=== PATIENT | female | born 1930 | race African-American/Black ===

== ENCOUNTER 2019-08-13 01:43 | Emergency (ER) | payer SELFPAY ==
[~2019-08-13] VITALS: Ht 157.5 cm; Wt 48.0 kg
[2019-08-13] MEDS ORDERED: SODIUM CHLORIDE 0.9% 1000ML BAG (SEPSIS BOLUS) IV ONE (02:15)
[2019-08-13 02:58] LABS: CHLORIDE 108 mEq/L (98-107)
[2019-08-13 03:02] LABS: EOSINOPHILS % 0.7 % (0.0-5.0); HEMATOCRIT. 36.8 % (36.0-48.0); HEMOGLOBIN. 12.5 g/dL (12.0-16.0); LYMPHOCYTES % 34.4 % (20.0-50.0); MEAN CORPUSCULAR HEMOGLOBIN 32.9 pg (28.0-32.0); MEAN CORPUSCULAR VOLUME 96.6 fL (81.0-99.0); MEAN PLATELET VOLUME 7.5 fl (7.4-10.4); MONOCYTES % 5.3 % (2.0-8.0); NEUTROPHILS % 58.6 % (40.0-76.0); PLATELET 243 x1000/uL (130-400); RED BLOOD CELL COUNT 3.81 mill/uL (4.2-5.4)
[2019-08-13 03:03] LABS: ETHANOL BLOOD < 10 mg/dL
[2019-08-13 03:08] VITALS: BP 101/56
== END 2019-08-13 03:10 | disposition home or self-care (01) ==
LOC: ER 01:43 → CANBEDREQ 06:24
DX: R53.1 Weakness (principal); G89.29 Other chronic pain; M54.5 Low back pain
CPT/HCPCS: 36415; 80053; 80320; 83605; 84145; 84484; 85025; 87040; 93005; 99284; J7030; G0480

== ENCOUNTER 2019-12-23 01:53 | Inpatient (IN) | payer MEDICARE, MEDICAID ==
[~2019-12-23] VITALS: Ht 154.4 cm; Wt 37.6 kg
[~2019-12-23 01:53] MED LIST: BRIM10DR2 EACHEYE
[2019-12-23] MEDS ORDERED: SODIUM CHLORIDE 0.9% 500 ML IV ONE (02:15)
[2019-12-23 03:13] LABS: BASOPHILS % 1.5 % (0.0-2.0); EOSINOPHILS % 0.4 % (0.0-5.0); HEMOGLOBIN. 11.6 g/dL (12.0-16.0); LYMPHOCYTES % 32.5 % (20.0-50.0); MEAN CORPUSCULAR HEMOGLOBIN 33.1 pg (28.0-32.0); MEAN CORPUSCULAR VOLUME 99.9 fL (81.0-99.0); MEAN PLATELET VOLUME 7.4 fl (7.4-10.4); MONOCYTES % 8.4 % (2.0-8.0); NEUTROPHILS % 57.2 % (40.0-76.0); PLATELET 246 x1000/uL (130-400); RED CELL DISTRIBUTION WIDTH 15.3 % (11.6-14.6)
[2019-12-23] MEDS ORDERED: DEXTROSE 50% WATER 50ML SYRINGE IV ONE (03:15)
[2019-12-23] MEDS ORDERED: SODIUM CHLORIDE 0.9% 1,000 ML IV ONE (03:15)
[2019-12-23 03:20] LABS: CHLORIDE 103 mEq/L (98-107)
[2019-12-23 03:21] LABS: CLARITY URINE CLOUDY (CLEAR); COLOR URINE YELLOW (YELLOW); KETONES URINE 2+ (NEGATIVE); LEUKOCYTE ESTERASE URINE 2+ (NEGATIVE); NITRITE URINE NEGATIVE (NEGATIVE); OCCULT BLOOD URINE TRACE (NEGATIVE); PROTEIN URINE TRACE (NEGATIVE); SPECIFIC GRAVITY URINE 1.019 (1.005-1.030)
[2019-12-23 03:30] LABS: ETHANOL BLOOD < 10 mg/dL
[2019-12-23 04:14] LABS: *AMPHETAMINES SCREEN URINE NEGATIVE (NEGATIVE); *BARBITURATES SCREEN URINE NEGATIVE (NEGATIVE); *BENZODIAZEPINES SCREEN URINE NEGATIVE (NEGATIVE); *COCAINE SCREEN URINE NEGATIVE (NEGATIVE)
[2019-12-23 04:15] LABS: CANNABINOID URINE SCREEN NEGATIVE (NEGATIVE); METHADONE URINE SCREEN NEGATIVE (NEGATIVE); OPIATES URINE SCREEN NEGATIVE (NEGATIVE); PHENCYCLIDINE URINE SCREEN NEGATIVE (NEGATIVE)
[2019-12-23] MEDS ORDERED: CEFTRIAXONE 1 G PREMIX 50 ML IV NR (04:45)
[2019-12-23] MEDS ORDERED: DEXTROSE 50% WATER 50ML SYRINGE IV NR (05:45)
[2019-12-23] MEDS ORDERED: CLONIDINE 0.1MG TABLET PO PRN (09:00)
[2019-12-23] MEDS ORDERED: ONDANSETRON HCL 4MG/2ML INJ IV PRN (09:00)
[2019-12-23] MEDS ORDERED: DIPHENHYDRAMINE 50MG/ML VIAL IV PRN (09:00)
[2019-12-23] MEDS ORDERED: CEFTRIAXONE 1 G PREMIX 50 ML IV SCH (09:00)
[2019-12-23] MEDS ORDERED: ACETAMINOPHEN 325MG TABLET PO PRN (09:00)
[2019-12-23 10:18] VITALS: BP 102/66
[2019-12-23 12:00] VITALS: BP 117/39
[2019-12-23] MEDS: SODIUM CHLORIDE 0.9% 1,000 ML IV SCH (14:00)
[2019-12-23 16:00] VITALS: BP 114/46
[2019-12-23 18:38] LABS: VITAMIN B12 SERUM > 2000.0 pg/mL (211-911)
[2019-12-23 20:00] VITALS: BP 102/37
[2019-12-24] VITALS: BP 119/40
[2019-12-24 04:00] VITALS: BP 114/38
[2019-12-24] MEDS: CEFTRIAXONE 1,000 MG in DEXTROSE 5% WATER 50 ML IV SCH (05:16)
[2019-12-24 06:33] LABS: CHLORIDE 105 mEq/L (98-107)
[2019-12-24 06:45] LABS: BASOPHILS % 1.2 % (0.0-2.0); EOSINOPHILS % 0.9 % (0.0-5.0); HEMATOCRIT. 30.1 % (36.0-48.0); HEMOGLOBIN. 10.3 g/dL (12.0-16.0); LYMPHOCYTES % 20.9 % (20.0-50.0); MEAN CORPUSCULAR HEMOGLOBIN 33.5 pg (28.0-32.0); MEAN CORPUSCULAR VOLUME 98.1 fL (81.0-99.0); MEAN PLATELET VOLUME 7.5 fl (7.4-10.4); MONOCYTES % 6.3 % (2.0-8.0); NEUTROPHILS % 70.7 % (40.0-76.0); PLATELET 241 x1000/uL (130-400); RED BLOOD CELL COUNT 3.07 mill/uL (4.2-5.4); RED CELL DISTRIBUTION WIDTH 14.9 % (11.6-14.6)
[2019-12-24 06:49] LABS: LDL CHOLESTEROL 99 mg/dL (5-100)
[2019-12-24 06:51] LABS: HDL CHOLESTEROL 50 mg/dL (40-59)
[2019-12-24 08:00] VITALS: BP 107/39
[2019-12-24] MEDS: SODIUM CHLORIDE 0.9% 1,000 ML IV SCH (09:03)
[2019-12-24] MEDS ORDERED: DEXTROSE 50% WATER 50ML SYRINGE IV SCH (10:15)
[2019-12-24 11:32] LABS: T4 FREE 1.01 ng/dL (0.76-1.46)
[2019-12-24 12:00] VITALS: BP 118/48
[2019-12-24] MEDS ORDERED: DEXTROSE 50% WATER 50ML SYRINGE IV PRN ×2 (12:00→19:45)
[2019-12-24 16:00] VITALS: BP 103/67
[2019-12-24] MEDS: DEXT 5%/0.9% NACL 1,000 ML IV SCH (17:34)
[2019-12-24 20:00] VITALS: BP 120/52
[2019-12-24] MEDS: INSULIN LISPRO 100 UNITS/ML SUBCUT SCH (21:00)
[2019-12-24] MEDS: BLOOD SUGAR DIAGNOSTIC STRIP TEST SCH (21:00)
[2019-12-25] VITALS: BP_SYST 128; BP_DIAS 47; BP_DIAS 48
[2019-12-25 04:00] VITALS: BP 101/45
[2019-12-25] MEDS: CEFTRIAXONE 1,000 MG in DEXTROSE 5% WATER 50 ML IV SCH (05:31)
[2019-12-25] MEDS: INSULIN LISPRO 100 UNITS/ML SUBCUT SCH ×4 (05:42→21:00)
[2019-12-25] MEDS: BLOOD SUGAR DIAGNOSTIC STRIP TEST SCH ×4 (05:42→20:36)
[2019-12-25 06:20] LABS: CHLORIDE 106 mEq/L (98-107)
[2019-12-25 08:00] VITALS: BP 97/43
[2019-12-25 10:19] LABS: BASOPHILS % 0.7 % (0.0-2.0); EOSINOPHILS % 1.2 % (0.0-5.0); HEMATOCRIT. 31.3 % (36.0-48.0); HEMOGLOBIN. 10.5 g/dL (12.0-16.0); LYMPHOCYTES % 19.8 % (20.0-50.0); MEAN CORPUSCULAR HEMOGLOBIN 33.6 pg (28.0-32.0); MEAN CORPUSCULAR VOLUME 100.4 fL (81.0-99.0); MEAN PLATELET VOLUME 7.9 fl (7.4-10.4); MONOCYTES % 7.9 % (2.0-8.0); NEUTROPHILS % 70.4 % (40.0-76.0); PLATELET 205 x1000/uL (130-400); RED BLOOD CELL COUNT 3.12 mill/uL (4.2-5.4); RED CELL DISTRIBUTION WIDTH 15.8 % (11.6-14.6)
[2019-12-25 12:00] VITALS: BP 109/40
[2019-12-25] MEDS: DEXT 5%/0.9% NACL 1,000 ML IV SCH ×2 (12:19→21:34)
[2019-12-25 16:00] VITALS: BP 113/46
[2019-12-25 20:00] VITALS: BP 113/50
[2019-12-26] VITALS: BP 104/47
[2019-12-26 04:00] VITALS: BP 108/49
[2019-12-26] MEDS: CEFTRIAXONE 1,000 MG in DEXTROSE 5% WATER 50 ML IV SCH (05:31)
[2019-12-26] MEDS: BLOOD SUGAR DIAGNOSTIC STRIP TEST SCH ×4 (06:01→20:33)
[2019-12-26] MEDS: INSULIN LISPRO 100 UNITS/ML SUBCUT SCH ×4 (06:03→20:33)
[2019-12-26 07:27] LABS: BASOPHILS % 0.6 % (0.0-2.0); EOSINOPHILS % 0.7 % (0.0-5.0); HEMATOCRIT. 28.5 % (36.0-48.0); HEMOGLOBIN. 9.6 g/dL (12.0-16.0); LYMPHOCYTES % 12.7 % (20.0-50.0); MEAN CORPUSCULAR HEMOGLOBIN 33.2 pg (28.0-32.0); MEAN CORPUSCULAR VOLUME 98.3 fL (81.0-99.0); MEAN PLATELET VOLUME 7.8 fl (7.4-10.4); PLATELET 182 x1000/uL (130-400); RED CELL DISTRIBUTION WIDTH 15.7 % (11.6-14.6)
[2019-12-26 08:00] VITALS: BP 110/60
[2019-12-26 08:20] LABS: CHLORIDE 105 mEq/L (98-107)
[2019-12-26 12:00] VITALS: BP 132/50
[2019-12-26] MEDS ORDERED: DEXT33GE7 PO (14:56)
[2019-12-26 16:00] VITALS: BP 100/50
[2019-12-26 20:00] VITALS: BP 124/55
[2019-12-26] MEDS: DEXT 5%/0.9% NACL 1,000 ML IV SCH (22:18)
[2019-12-27] VITALS: BP 102/77
[2019-12-27 04:00] VITALS: BP 115/51
[2019-12-27] MEDS: CEFTRIAXONE 1,000 MG in DEXTROSE 5% WATER 50 ML IV SCH (05:31)
[2019-12-27] MEDS: INSULIN LISPRO 100 UNITS/ML SUBCUT SCH ×4 (06:28→20:52)
[2019-12-27] MEDS: BLOOD SUGAR DIAGNOSTIC STRIP TEST SCH ×4 (06:28→20:52)
[2019-12-27 07:11] LABS: CHLORIDE 108 mEq/L (98-107)
[2019-12-27 08:00] VITALS: BP 118/46
[2019-12-27 11:45] VITALS: BP 140/60
[2019-12-27 16:00] VITALS: BP 123/63
[2019-12-27 18:52] LABS: BASOPHILS % 0.4 % (0.0-2.0); EOSINOPHILS % 0.5 % (0.0-5.0); HEMOGLOBIN. 8.6 g/dL (12.0-16.0); LYMPHOCYTES % 13.5 % (20.0-50.0); MEAN CORPUSCULAR VOLUME 99.3 fL (81.0-99.0); MEAN PLATELET VOLUME 8.6 fl (7.4-10.4); MONOCYTES % 9.2 % (2.0-8.0); NEUTROPHILS % 76.4 % (40.0-76.0); PLATELET 153 x1000/uL (130-400); RED BLOOD CELL COUNT 2.61 mill/uL (4.2-5.4)
[2019-12-27 20:00] VITALS: BP 114/54
[2019-12-28] VITALS: BP 121/47
[2019-12-28] MEDS: DEXT 5%/0.9% NACL 1,000 ML IV SCH (00:37)
[2019-12-28 04:00] VITALS: BP 110/45
[2019-12-28] MEDS: CEFTRIAXONE 1,000 MG in DEXTROSE 5% WATER 50 ML IV SCH (05:42)
[2019-12-28] MEDS: INSULIN LISPRO 100 UNITS/ML SUBCUT SCH (06:42)
[2019-12-28] MEDS: BLOOD SUGAR DIAGNOSTIC STRIP TEST SCH (06:42)
[2019-12-28 07:07] LABS: CHLORIDE 111 mEq/L (98-107)
[2019-12-28 08:00] VITALS: BP 128/60
[2019-12-28 11:05] LABS: BASOPHILS % 0.5 % (0.0-2.0); EOSINOPHILS % 0.9 % (0.0-5.0); HEMATOCRIT. 27.6 % (36.0-48.0); HEMOGLOBIN. 9.3 g/dL (12.0-16.0); LYMPHOCYTES % 16.2 % (20.0-50.0); MEAN CORPUSCULAR HEMOGLOBIN 33.6 pg (28.0-32.0); MEAN PLATELET VOLUME 8.2 fl (7.4-10.4); MONOCYTES % 7.1 % (2.0-8.0); NEUTROPHILS % 75.3 % (40.0-76.0); PLATELET 159 x1000/uL (130-400); RED BLOOD CELL COUNT 2.76 mill/uL (4.2-5.4); RED CELL DISTRIBUTION WIDTH 16.1 % (11.6-14.6)
[2019-12-28 13:00] VITALS: BP 100/75
== END 2019-12-28 13:10 | disposition home or self-care (01) | DRG 70 ==
LOC: ER 01:53 → 8WST 05:34 → EDBEDREQ 05:37 → EDBEDREQTM 05:37 → ENRESERV 07:21
PROVIDERS: ADMIT Internal Medicine; ATTEND Internal Medicine
DX: G93.41 Metabolic encephalopathy (principal); E43 Unspecified severe protein-calorie malnutrition; N39.0 Urinary tract infection, site not specified; R64 Cachexia; Z68.1 Body mass index [BMI] 19.9 or less, adult; R65.10 Systemic inflammatory response syndrome (SIRS) of non-infectious origin without acute organ dysfunction; E16.2 Hypoglycemia, unspecified; L89.156 Pressure-induced deep tissue damage of sacral region; F03.90 Unspecified dementia, unspecified severity, without behavioral disturbance, psychotic disturbance, mood disturbance, and anxiety; D53.9 Nutritional anemia, unspecified; R62.7 Adult failure to thrive
CPT/HCPCS: 36415; 71045; 80048; 80053; 80061; 80305; 80320; 81003; 82040; 82533; 82607; 82746; 82962; 83036; 83735; 84100; 84134; 84439; 84443; 84481; 84484; 85025; 87106; 93005; 93970; 97162; 97165; 97530; 99285; J0696; J7030; J7040; J7042; J7060; G0480

== ENCOUNTER 2022-04-28 19:34 | Inpatient (IN) | payer MEDICARE, MEDICAID ==
[~2022-04-28] VITALS: Ht 154.9 cm; Wt 45.4 kg
[~2022-04-28 19:34] MED LIST changes: +DEXT33GE7 PO
[2022-04-28] MEDS ORDERED: CEFEPIME HCL 1000MG/VIAL INJ IM ONE (21:00)
[2022-04-28] MEDS ORDERED: SODIUM CHLORIDE 0.9% 1000ML BAG (SEPSIS BOLUS) IV ONE (21:00)
[2022-04-28] MEDS ORDERED: CEFEPIME 1,000 MG in DEXTROSE 5% WATER 50 ML IV SCH (21:15)
[2022-04-28 21:59] LABS: BASOPHILS % 0.5 % (0.0-2.0); EOSINOPHILS % 1.1 % (0.0-5.0); HEMATOCRIT. 39.6 % (36.0-48.0); LYMPHOCYTES % 24.3 % (20.0-50.0); MEAN CORPUSCULAR HEMOGLOBIN 35.1 pg (28.0-32.0); MEAN CORPUSCULAR VOLUME 106.9 fL (81.0-99.0); MEAN PLATELET VOLUME 10.1 fl (7.4-10.4); MONOCYTES % 6.5 % (2.0-8.0); NEUTROPHILS % 67.6 % (40.0-76.0); PLATELET 121 x1000/uL (130-400); RED CELL DISTRIBUTION WIDTH 13.1 % (11.6-14.6)
[2022-04-28 22:37] LABS: CLARITY URINE CLOUDY (CLEAR); COLOR URINE YELLOW (YELLOW); KETONES URINE NEGATIVE (NEGATIVE); LEUKOCYTE ESTERASE URINE TRACE (NEGATIVE); NITRITE URINE POSITIVE (NEGATIVE); OCCULT BLOOD URINE NEGATIVE (NEGATIVE); PROTEIN URINE NEGATIVE (NEGATIVE); SPECIFIC GRAVITY URINE 1.015 (1.005-1.030); UROBILINOGEN URINE 0.2 E.U./dL (0.2-1.0)
[2022-04-28 23:03] LABS: CHLORIDE 128 mEq/L (98-107)
[2022-04-28] MEDS ORDERED: DIPHENHYDRAMINE 50MG/ML VIAL IV PRN (23:45)
[2022-04-28] MEDS ORDERED: ONDANSETRON HCL 4MG/2ML INJ IV PRN (23:45)
[2022-04-28] MEDS ORDERED: IPRATROPIUM/ALBUTEROL 0.5-3(2.5)MG/3ML NEB HHN PRN (23:45)
[2022-04-28] MEDS ORDERED: DEXTROSE 5% WATER 1,000 ML IV SCH (23:45)
[2022-04-28] MEDS ORDERED: CLONIDINE 0.1MG TABLET PO PRN (23:45)
[2022-04-28] MEDS ORDERED: CEFEPIME 1,000 MG in DEXTROSE 5% WATER 50 ML IV NR (23:59)
[2022-04-29] MEDS: CEFTRIAXONE 1 G PREMIX 50 ML IV SCH ×2 (01:00→01:39)
[2022-04-29] MEDS: DEXTROSE 5% WATER 1,000 ML IV SCH ×2 (01:16→10:58)
[2022-04-29 10:00] VITALS: BP 104/37
[2022-04-29 12:00] VITALS: BP_SYST 104; BP_SYST 94; BP_DIAS 36; BP_DIAS 37
[2022-04-29] MEDS: ACETAMINOPHEN 325MG TABLET PO PRN (13:11)
[2022-04-29] MEDS ORDERED: MEMA5TAB7 PO (14:29)
[2022-04-29] MEDS ORDERED: LEVO50TA PO (14:29)
[2022-04-29 16:00] VITALS: BP 95/40
[2022-04-29 16:54] LABS: CHLORIDE 126 mEq/L (98-107)
[2022-04-29 17:09] LABS: BASOPHILS % 0.6 % (0.0-2.0); EOSINOPHILS % 2.4 % (0.0-5.0); HEMOGLOBIN. 10.8 g/dL (12.0-16.0); LYMPHOCYTES % 25.2 % (20.0-50.0); MEAN CORPUSCULAR HEMOGLOBIN 35.3 pg (28.0-32.0); MEAN CORPUSCULAR VOLUME 107.9 fL (81.0-99.0); MEAN PLATELET VOLUME 10.4 fl (7.4-10.4); MONOCYTES % 5.3 % (2.0-8.0); NEUTROPHILS % 66.5 % (40.0-76.0); PLATELET 99 x1000/uL (130-400); RED BLOOD CELL COUNT 3.06 mill/uL (4.2-5.4); RED CELL DISTRIBUTION WIDTH 13.5 % (11.6-14.6)
[2022-04-29 20:51] VITALS: BP 151/74
[2022-04-30] VITALS (7 sets, daily range): BP systolic 93–97; BP diastolic 27–38
[2022-04-30] MEDS: CEFTRIAXONE 1,000 MG in DEXTROSE 5% WATER 50 ML IV SCH (02:13)
[2022-04-30 12:41] LABS: BASOPHILS % 0.5 % (0.0-2.0); EOSINOPHILS % 2.5 % (0.0-5.0); HEMATOCRIT. 34.3 % (36.0-48.0); HEMOGLOBIN. 11.3 g/dL (12.0-16.0); LYMPHOCYTES % 16.9 % (20.0-50.0); MEAN CORPUSCULAR HEMOGLOBIN 34.9 pg (28.0-32.0); MEAN PLATELET VOLUME 10.1 fl (7.4-10.4); MONOCYTES % 3.6 % (2.0-8.0); NEUTROPHILS % 76.5 % (40.0-76.0); PLATELET 106 x1000/uL (130-400); RED BLOOD CELL COUNT 3.24 mill/uL (4.2-5.4); RED CELL DISTRIBUTION WIDTH 13.1 % (11.6-14.6)
[2022-04-30 14:40] LABS: CHLORIDE 120 mEq/L (98-107)
[2022-04-30 14:58] LABS: PHOSPHORUS 2.4 mg/dL (2.5-4.9)
[2022-04-30] MEDS ORDERED: POTASSIUM PHOS,M-BASIC-D-BASIC 20 MMOL in DEXT 5% WATER 243.3333 ML IV NR (19:00)
[2022-05-01 00:41] VITALS: BP 90/36
[2022-05-01] MEDS: DEXTROSE 5% WATER 1,000 ML IV SCH (01:05)
[2022-05-01] MEDS: CEFTRIAXONE 1,000 MG in DEXTROSE 5% WATER 50 ML IV SCH (01:05)
[2022-05-01 04:00] VITALS: BP_SYST 101
[2022-05-01 07:30] LABS: BASOPHILS % 0.3 % (0.0-2.0); EOSINOPHILS % 2.8 % (0.0-5.0); HEMATOCRIT. 33.5 % (36.0-48.0); HEMOGLOBIN. 11.2 g/dL (12.0-16.0); LYMPHOCYTES % 14.5 % (20.0-50.0); MEAN CORPUSCULAR HEMOGLOBIN 35.1 pg (28.0-32.0); MEAN CORPUSCULAR VOLUME 105.2 fL (81.0-99.0); MEAN PLATELET VOLUME 10.3 fl (7.4-10.4); MONOCYTES % 4.3 % (2.0-8.0); NEUTROPHILS % 78.1 % (40.0-76.0); PLATELET 106 x1000/uL (130-400); RED BLOOD CELL COUNT 3.19 mill/uL (4.2-5.4); RED CELL DISTRIBUTION WIDTH 12.5 % (11.6-14.6)
[2022-05-01 07:49] LABS: CHLORIDE 115 mEq/L (98-107)
[2022-05-01 07:56] LABS: PHOSPHORUS 2.9 mg/dL (2.5-4.9)
[2022-05-01 08:00] VITALS: BP 108/56
[2022-05-01 12:00] VITALS: BP 102/52
[2022-05-01 16:00] VITALS: BP 106/33
[2022-05-01 20:00] VITALS: BP 104/58
[2022-05-01] MEDS: ACETAMINOPHEN 325MG TABLET PO PRN (21:13)
[2022-05-02] VITALS: BP 95/56
[2022-05-02] MEDS: CEFTRIAXONE 1,000 MG in DEXTROSE 5% WATER 50 ML IV SCH (01:37)
[2022-05-02 04:00] VITALS: BP 148/77
[2022-05-02 07:49] LABS: CHLORIDE 114 mEq/L (98-107)
[2022-05-02 09:18] VITALS: BP 103/50
[2022-05-02 12:31] VITALS: BP_SYST 106; BP_DIAS 48; BP_DIAS 62
[2022-05-02] MEDS ORDERED: ENOXAPARIN 40MG/0.4ML SYR SUBCUT SCH (13:00)
[2022-05-02 15:59] VITALS: BP 102/44
[2022-05-02 20:00] VITALS: BP 109/46
[2022-05-03] VITALS (7 sets, daily range): BP systolic 81–106; BP diastolic 35–59
[2022-05-03] MEDS: CEFTRIAXONE 1,000 MG in DEXTROSE 5% WATER 50 ML IV SCH (01:43)
[2022-05-03 06:17] LABS: BASOPHILS % 0.5 % (0.0-2.0); HEMATOCRIT. 31.3 % (36.0-48.0); HEMOGLOBIN. 10.6 g/dL (12.0-16.0); LYMPHOCYTES % 18.9 % (20.0-50.0); MEAN CORPUSCULAR HEMOGLOBIN 35.4 pg (28.0-32.0); MEAN CORPUSCULAR VOLUME 104.1 fL (81.0-99.0); MONOCYTES % 7.1 % (2.0-8.0); NEUTROPHILS % 70.5 % (40.0-76.0); PLATELET 107 x1000/uL (130-400); RED BLOOD CELL COUNT 3.01 mill/uL (4.2-5.4); RED CELL DISTRIBUTION WIDTH 12.8 % (11.6-14.6)
[2022-05-03 06:32] LABS: CHLORIDE 117 mEq/L (98-107)
[2022-05-03] MEDS: ENOXAPARIN 30MG/0.3ML SYR SUBCUT SCH (08:08)
[2022-05-04 00:49] VITALS: BP 105/37
[2022-05-04 04:00] VITALS: BP 108/38
[2022-05-04 08:00] VITALS: BP 98/42
[2022-05-04] MEDS: ENOXAPARIN 30MG/0.3ML SYR SUBCUT SCH (08:13)
[2022-05-04 11:27] LABS: BASOPHILS % 0.6 % (0.0-2.0); EOSINOPHILS % 3.1 % (0.0-5.0); HEMATOCRIT. 30.3 % (36.0-48.0); HEMOGLOBIN. 10.2 g/dL (12.0-16.0); LYMPHOCYTES % 21.5 % (20.0-50.0); MEAN CORPUSCULAR HEMOGLOBIN 35.1 pg (28.0-32.0); MEAN CORPUSCULAR VOLUME 104.6 fL (81.0-99.0); MEAN PLATELET VOLUME 10.6 fl (7.4-10.4); MONOCYTES % 6.6 % (2.0-8.0); NEUTROPHILS % 68.2 % (40.0-76.0); PLATELET 116 x1000/uL (130-400)
[2022-05-04 11:32] LABS: CHLORIDE 118 mEq/L (98-107)
[2022-05-04 12:00] VITALS: BP 94/38
[2022-05-04 16:00] VITALS: BP 97/39
[2022-05-04 20:00] VITALS: BP 97/30
[2022-05-04] MEDS ORDERED: ACETAMINOPHEN 650MG/20.3ML UDC GT PRN (23:45)
[2022-05-05 00:38] VITALS: BP 94/37
[2022-05-05 04:00] VITALS: BP 94/37
[2022-05-05 07:20] LABS: BASOPHILS % 0.8 % (0.0-2.0); EOSINOPHILS % 2.8 % (0.0-5.0); HEMOGLOBIN. 9.7 g/dL (12.0-16.0); LYMPHOCYTES % 30.9 % (20.0-50.0); MEAN CORPUSCULAR HEMOGLOBIN 35.3 pg (28.0-32.0); MEAN CORPUSCULAR VOLUME 105.2 fL (81.0-99.0); MEAN PLATELET VOLUME 10.2 fl (7.4-10.4); MONOCYTES % 7.7 % (2.0-8.0); NEUTROPHILS % 57.8 % (40.0-76.0); PLATELET 119 x1000/uL (130-400); RED BLOOD CELL COUNT 2.76 mill/uL (4.2-5.4); RED CELL DISTRIBUTION WIDTH 12.9 % (11.6-14.6)
[2022-05-05 07:50] LABS: CHLORIDE 115 mEq/L (98-107)
[2022-05-05 08:00] VITALS: BP 100/39
[2022-05-05] MEDS: ENOXAPARIN 30MG/0.3ML SYR SUBCUT SCH (09:25)
[2022-05-05 12:00] VITALS: BP 102/43
[2022-05-05 16:00] VITALS: BP 116/41
[2022-05-05 20:00] VITALS: BP 117/28
[2022-05-06] VITALS: BP 103/42
[2022-05-06 04:00] VITALS: BP 117/81
[2022-05-06 08:00] VITALS: BP 106/98
[2022-05-06 08:20] LABS: HEMATOCRIT 34.5 % (36.0-48.0); HEMOGLOBIN 10.9 g/dL (12.0-16.0); MEAN CORPUSCULAR HEMOGLOBIN 35.2 pg (28.0-32.0); MEAN CORPUSCULAR VOLUME 111.6 fL (81.0-99.0); PLATELET 119 x1000/uL (130-400); RED CELL DISTRIBUTION WIDTH 14.2 % (11.6-14.6)
[2022-05-06] MEDS: ENOXAPARIN 30MG/0.3ML SYR SUBCUT SCH (09:17)
[2022-05-06 12:00] VITALS: BP 107/71
[2022-05-06 16:00] VITALS: BP 110/44
[2022-05-06 20:00] VITALS: BP 121/41
[2022-05-07] VITALS: BP 94/40
[2022-05-07 04:00] VITALS: BP 105/41
[2022-05-07 08:00] VITALS: BP 100/34
[2022-05-07] MEDS: ENOXAPARIN 30MG/0.3ML SYR SUBCUT SCH (09:00)
[2022-05-07 09:29] LABS: BASOPHILS % 0.6 % (0.0-2.0); EOSINOPHILS % 3.3 % (0.0-5.0); HEMATOCRIT. 30.1 % (36.0-48.0); HEMOGLOBIN. 10.2 g/dL (12.0-16.0); MEAN CORPUSCULAR HEMOGLOBIN 35.7 pg (28.0-32.0); MEAN CORPUSCULAR VOLUME 105.1 fL (81.0-99.0); MEAN PLATELET VOLUME 9.3 fl (7.4-10.4); MONOCYTES % 6.8 % (2.0-8.0); NEUTROPHILS % 56.3 % (40.0-76.0); PLATELET 149 x1000/uL (130-400); RED BLOOD CELL COUNT 2.87 mill/uL (4.2-5.4); RED CELL DISTRIBUTION WIDTH 12.9 % (11.6-14.6)
[2022-05-07 09:42] LABS: CHLORIDE 115 mEq/L (98-107)
[2022-05-07 12:00] VITALS: BP 104/32
[2022-05-07 20:00] VITALS: BP 88/38
[2022-05-08] VITALS: BP 92/66
[2022-05-08 04:00] VITALS: BP 100/37
[2022-05-08 08:00] VITALS: BP 93/64
[2022-05-08 08:49] LABS: BASOPHILS % 0.7 % (0.0-2.0); EOSINOPHILS % 2.6 % (0.0-5.0); HEMATOCRIT. 29.8 % (36.0-48.0); HEMOGLOBIN. 10.1 g/dL (12.0-16.0); LYMPHOCYTES % 32.5 % (20.0-50.0); MEAN CORPUSCULAR HEMOGLOBIN 35.9 pg (28.0-32.0); MEAN PLATELET VOLUME 9.3 fl (7.4-10.4); MONOCYTES % 7.2 % (2.0-8.0); PLATELET 171 x1000/uL (130-400); RED BLOOD CELL COUNT 2.82 mill/uL (4.2-5.4); RED CELL DISTRIBUTION WIDTH 13.1 % (11.6-14.6)
[2022-05-08 09:09] LABS: CHLORIDE 115 mEq/L (98-107)
[2022-05-08] MEDS: ENOXAPARIN 30MG/0.3ML SYR SUBCUT SCH (09:43)
[2022-05-08 12:00] VITALS: BP 100/40
[2022-05-08 16:00] VITALS: BP 98/36
[2022-05-08 20:42] VITALS: BP 94/32
[2022-05-09] MEDS: ENOXAPARIN 30MG/0.3ML SYR SUBCUT SCH (10:17)
[2022-05-09] MEDS ORDERED: SODIUM CHLORIDE 0.9% 250 ML IV ONE ×2 (12:30→17:30)
[2022-05-09 16:52] VITALS: BP 109/37
[2022-05-09 20:00] VITALS: BP 84/62
[2022-05-10] VITALS: BP 88/64
[2022-05-10 08:00] VITALS: BP 115/71
[2022-05-10] MEDS: ENOXAPARIN 30MG/0.3ML SYR SUBCUT SCH (09:34)
[2022-05-10 12:00] VITALS: BP 111/67
[2022-05-10 14:40] VITALS: BP 109/33
== END 2022-05-10 14:45 | disposition home health service (06) | DRG 70 ==
LOC: ER 19:34 → 7WST 23:01 → EDBEDREQSVC 23:04 → EDBEDREQ 23:04 → EDBEDREQTM 23:04 → ENRESERV 04-29 07:56 → 6EST 05-07 15:42
PROVIDERS: ADMIT Family Medicine Adult Medicine; ATTEND Family Medicine Adult Medicine
DX: G93.41 Metabolic encephalopathy (principal); E43 Unspecified severe protein-calorie malnutrition; E87.0 Hyperosmolality and hypernatremia; N39.0 Urinary tract infection, site not specified; Z68.1 Body mass index [BMI] 19.9 or less, adult; Z20.822 Contact with and (suspected) exposure to COVID-19; Z66 Do not resuscitate; E86.9 Volume depletion, unspecified; F03.90 Unspecified dementia, unspecified severity, without behavioral disturbance, psychotic disturbance, mood disturbance, and anxiety; R62.7 Adult failure to thrive; Z79.899 Other long term (current) drug therapy; R13.10 Dysphagia, unspecified; R79.89 Other specified abnormal findings of blood chemistry; I95.9 Hypotension, unspecified; E87.6 Hypokalemia; E83.39 Other disorders of phosphorus metabolism; Z93.1 Gastrostomy status; Z74.01 Bed confinement status
CPT/HCPCS: 36415; 71045; 80048; 80053; 81003; 82962; 83605; 83735; 84100; 84145; 85025; 85027; 87420; 87426; 87804; 93005; 93970; 99285; A6261; C1893; C9803; J0692; J0696; J1650; J3490; J7030; J7060; J7070